=== PATIENT | female | born 2000 | race Caucasian/White ===

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

== ENCOUNTER 2022-02-01 15:48 | Emergency (ER) | payer OTHER, BC ==
[~2022-02-01] VITALS: Ht 172.7 cm; Wt 102.8 kg
[~2022-02-01 15:48] MED LIST changes: +ALBU2.5V10 INH; -ALBU83IN INH
[2022-02-01 16:54] LABS: BASO # 0.1 10^3/uL (0.0-0.2); BASO % 0.6 % (0.0-1.0); EOS # 0.3 10^3/uL (0.0-0.5); EOS % 3.2 % (0.0-3.0); HEMOGLOBIN 14.3 g/dl (12.0-15.5); LYMPH # 3.3 10^3/uL (1.5-5.0); LYMPH % 31.1 % (24.0-44.0); MEAN CORPUSCULAR HEMOGLOBIN 28.8 pg (27.0-33.0); MEAN CORPUSCULAR VOLUME 84.5 fl (80.0-96.0); MONO # 0.3 10^3/uL (0.0-0.8); MONO % 2.6 % (2.0-8.0); NEUTROPHILS # 6.5 10^3/uL (1.5-8.5); NEUTROPHILS % 62.2 % (36.0-66.0); PLATELET COUNT, AUTOMATED 270 10^3/uL (150-450); RED BLOOD COUNT 4.97 10^6/uL (4.00-5.40); WHITE BLOOD COUNT 10.5 10^3/uL (4.0-10.0)
[2022-02-01] MEDS ORDERED: NS 1,000 ML IV ONE (17:15)
[2022-02-01] MEDS ORDERED: KETOROLAC 30 MG/ML 1ML VIAL IV ONE (17:15)
[2022-02-01 17:33] LABS: ALBUMIN 3.7 GM/DL (3.2-5.2); ALT/SGPT 83 U/L (12-78); BILIRUBIN,DIRECT 0.3 MG/DL (0.0-0.2); BILIRUBIN,TOTAL 0.5 MG/DL (0.2-1.0); BLOOD UREA NITROGEN 9 MG/DL (7-18); CALCIUM LEVEL 9.4 MG/DL (8.5-10.1); CARBON DIOXIDE LEVEL 25 MEQ/L (21-32); CHLORIDE LEVEL 104 MEQ/L (98-107); CREATININE FOR GFR 0.74 MG/DL (0.55-1.30); GLUCOSE, FASTING 196 MG/DL (70-100); LIPASE 90 U/L (73-393); POTASSIUM SERUM 3.9 MEQ/L (3.5-5.1); SODIUM LEVEL 136 MEQ/L (136-145); TOTAL PROTEIN 7.8 GM/DL (6.4-8.2)
[2022-02-01 17:44] LABS: HCG, SERUM QUALITATIVE NEGATIVE (NEGATIVE)
[2022-02-01] MEDS ORDERED: ISOVUE-370 76% 100ML VIAL As Ordered ONE (17:50)
[2022-02-01 19:45] LABS: HEMOGLOBIN A1c 6.8 %
[2022-02-01 22:03] VITALS: BP 127/60
== END 2022-02-01 22:06 | disposition home or self-care (01) ==
LOC: M ED 15:48
DX: E11.65 Type 2 diabetes mellitus with hyperglycemia (principal); R94.5 Abnormal results of liver function studies; K76.0 Fatty (change of) liver, not elsewhere classified; F17.200 Nicotine dependence, unspecified, uncomplicated; J45.909 Unspecified asthma, uncomplicated; Z88.1 Allergy status to other antibiotic agents; Z88.8 Allergy status to other drugs, medicaments and biological substances
CPT/HCPCS: 74177; 80048; 80076; 81000; 81015; 83036; 83690; 84703; 85025; 96361; 96374; 99284; J1885; Q9967

== ENCOUNTER → 2022-09-24 | Outpatient (CLI) | payer OTHER | LOC: M WUC 14:14 | PROVIDERS: ATTEND Nurse Practitioner Family | DX: M54.50 Low back pain, unspecified (principal) ==

== ENCOUNTER → 2023-06-24 | Outpatient (REF) | payer OTHER, SELFPAY ==
[~2023-06-24] MED LIST changes: +CYCL-707
[2023-06-24 18:16] LABS: CREATININE, URINE 254.9 MG/DL; MAU/CREAT RATIO 17.6 MCG/MG (0.0-30.0)
[2023-06-24 18:55] LABS: BASO % 0.6 % (0.0-1.0); EOS # 0.3 10^3/uL (0.0-0.5); EOS % 3.8 % (0.0-3.0); HEMOGLOBIN 14.4 g/dl (12.0-15.5); LYMPH # 2.4 10^3/uL (1.5-5.0); LYMPH % 34.2 % (24.0-44.0); MEAN CORPUSCULAR HEMOGLOBIN 29.1 pg (27.0-33.0); MEAN CORPUSCULAR HGB CONC 34.3 g/dl (32.0-36.5); MEAN CORPUSCULAR VOLUME 84.8 fl (80.0-96.0); MONO # 0.2 10^3/uL (0.0-0.8); MONO % 3.2 % (2.0-8.0); NEUTROPHILS % 57.9 % (36.0-66.0); PLATELET COUNT, AUTOMATED 254 10^3/uL (150-450); RED BLOOD COUNT 4.95 10^6/uL (4.00-5.40); WHITE BLOOD COUNT 6.9 10^3/uL (4.0-10.0)
[2023-06-24 19:28] LABS: HEMOGLOBIN A1c 7.6 % (4.0-6.0)
[2023-06-24 19:31] LABS: BLOOD UREA NITROGEN 11 MG/DL (9-23); CALCIUM LEVEL 8.4 MG/DL (8.5-10.1); CARBON DIOXIDE LEVEL 24 MMOL/L (20-31); CHLORIDE LEVEL 106 MMOL/L (98-107); CHOLESTEROL LEVEL 164 MG/DL (<200); CHOLESTEROL RISK RATIO 5.85 (<5); CREATININE FOR GFR 0.55 MG/DL (0.55-1.30); GLOMERULAR FILTRATION RATE > 60.0 (>60); GLUCOSE, FASTING 171 MG/DL (60-100); LDL CHOLESTEROL 77.4 MG/DL (<100); POTASSIUM SERUM 4.3 MMOL/L (3.5-5.1); SODIUM LEVEL 136 MMOL/L (136-145); TRIGLYCERIDES LEVEL 293 MG/DL (<150)
[2023-06-24 19:35] LABS: THYROID STIMULATING HORMONE 2.189 uIU/ML (0.55-4.78)
== END ==
LOC: M LAB REF 16:46
PROVIDERS: ATTEND Nurse Practitioner Family
DX: R03.0 Elevated blood-pressure reading, without diagnosis of hypertension (principal); M54.50 Low back pain, unspecified; Z68.33 Body mass index [BMI] 33.0-33.9, adult

== ENCOUNTER 2023-07-03 10:02 | Emergency (ER) | payer OTHER, SELFPAY ==
[~2023-07-03] VITALS: Ht 172.7 cm; Wt 102.7 kg
[~2023-07-03 10:02] MED LIST changes: -CYCL-707
[2023-07-03 10:03] VITALS: BP 200/111; TEMP 98; O2SAT 97
[2023-07-03] MEDS ORDERED: CYCL-707 (10:09)
== END 2023-07-03 12:37 | disposition left against medical advice (07) ==
LOC: M ED 10:02
DX: Z53.21 Procedure and treatment not carried out due to patient leaving prior to being seen by health care provider (principal)

== ENCOUNTER → 2023-10-15 | Outpatient (REF) | payer SELFPAY, OTHER, BC ==
[~2023-10-15] MED LIST changes: +CYCL-707
[2023-10-15 13:14] LABS: CREATININE, URINE 130.6 MG/DL; MAU/CREAT RATIO 9.9 MCG/MG (0.0-30.0)
[2023-10-15 13:56] LABS: BASO % 0.3 % (0.0-1.0); EOS # 0.2 10^3/uL (0.0-0.5); EOS % 3.3 % (0.0-3.0); HEMATOCRIT 39.4 % (36.0-47.0); HEMOGLOBIN 13.2 g/dl (12.0-15.5); LYMPH # 2.5 10^3/uL (1.5-5.0); MEAN CORPUSCULAR HGB CONC 33.5 g/dl (32.0-36.5); MEAN CORPUSCULAR VOLUME 86.6 fl (80.0-96.0); MONO # 0.4 10^3/uL (0.0-0.8); MONO % 4.7 % (2.0-8.0); NEUTROPHILS # 4.2 10^3/uL (1.5-8.5); NEUTROPHILS % 57.4 % (36.0-66.0); PLATELET COUNT, AUTOMATED 241 10^3/uL (150-450); RED BLOOD COUNT 4.55 10^6/uL (4.00-5.40); WHITE BLOOD COUNT 7.4 10^3/uL (4.0-10.0)
[2023-10-15 13:58] LABS: CHOLESTEROL LEVEL 180 MG/DL (<200); CHOLESTEROL RISK RATIO 6.94 (<5); HDL CHOLESTEROL 25.9 MG/DL (>40); NON-HDL-C 154.1 MG/DL; TRIGLYCERIDES LEVEL 427 MG/DL (<150)
== END ==
LOC: M LAB REF 12:04
PROVIDERS: ATTEND Nurse Practitioner Family
DX: R03.0 Elevated blood-pressure reading, without diagnosis of hypertension (principal); M54.50 Low back pain, unspecified; Z68.33 Body mass index [BMI] 33.0-33.9, adult; E66.3 Overweight

== ENCOUNTER → 2024-01-28 | Outpatient (REF) | payer SELFPAY, OTHER, BC ==
[2024-01-28 19:10] LABS: ALBUMIN 3.9 G/DL (3.2-5.2); ALKALINE PHOSPHATASE 67 U/L (46-116); ALT/SGPT 90 U/L (7.0-40); AST/SGOT 52 U/L (<34); BILIRUBIN,DIRECT 0.2 MG/DL (<0.4); BILIRUBIN,TOTAL 0.6 MG/DL (0.3-1.2); BLOOD UREA NITROGEN 14 MG/DL (9-23); CALCIUM LEVEL 9.9 MG/DL (8.5-10.1); CARBON DIOXIDE LEVEL 25 MMOL/L (20-31); CHLORIDE LEVEL 106 MMOL/L (98-107); CREATININE FOR GFR 0.54 MG/DL (0.55-1.30); GLOMERULAR FILTRATION RATE > 60.0 (>60); GLUCOSE, FASTING 129 MG/DL (60-100); POTASSIUM SERUM 4.7 MMOL/L (3.5-5.1); SODIUM LEVEL 136 MMOL/L (136-145); TOTAL PROTEIN 8.1 G/DL (5.7-8.2)
[2024-01-28 19:24] LABS: HEMOGLOBIN A1c 5.9 % (4.0-6.0)
== END ==
LOC: M LAB REF 18:04
PROVIDERS: ATTEND Nurse Practitioner Family
DX: E11.8 Type 2 diabetes mellitus with unspecified complications (principal); E78.1 Pure hyperglyceridemia

== ENCOUNTER → 2024-07-17 | Outpatient (REF) | payer SELFPAY, OTHER, BC ==
[2024-07-17 18:32] LABS: HEMOGLOBIN A1c 5.7 % (4.0-6.0)
[2024-07-17 18:52] LABS: ALBUMIN 3.6 G/DL (3.2-5.2); ALKALINE PHOSPHATASE 64 U/L (35-104); ALT/SGPT 52 U/L (7.0-40); AST/SGOT 34 U/L (<34); BILIRUBIN,DIRECT 0.2 MG/DL (<0.4); BILIRUBIN,TOTAL 0.5 MG/DL (0.3-1.2); BLOOD UREA NITROGEN 11 MG/DL (9-23); CALCIUM LEVEL 9.3 MG/DL (8.5-10.1); CARBON DIOXIDE LEVEL 26 MMOL/L (20-31); CHLORIDE LEVEL 105 MMOL/L (98-107); CHOLESTEROL LEVEL 164 MG/DL (<200); CHOLESTEROL RISK RATIO 5.46 (<5); CREATININE FOR GFR 0.62 MG/DL (0.55-1.30); GLOMERULAR FILTRATION RATE > 60.0 (>60); GLUCOSE, FASTING 101 MG/DL (60-100); LDL CHOLESTEROL 82.6 MG/DL (<100); POTASSIUM SERUM 4.9 MMOL/L (3.5-5.1); SODIUM LEVEL 139 MMOL/L (136-145); TOTAL PROTEIN 7.7 G/DL (5.7-8.2); TRIGLYCERIDES LEVEL 257 MG/DL (<150)
== END ==
LOC: M LAB REF 17:28
PROVIDERS: ATTEND Nurse Practitioner Family
DX: E11.8 Type 2 diabetes mellitus with unspecified complications (principal); E78.1 Pure hyperglyceridemia

== ENCOUNTER → 2025-01-26 | Outpatient (REF) | payer BC, OTHER, SELFPAY ==
[~2025-01-26] MED LIST changes: -IBUP-1022 PO; +IBUP600T42 PO
[2025-01-26 16:07] LABS: CALCIUM LEVEL 8.9 MG/DL (8.5-10.1); CARBON DIOXIDE LEVEL 22 MMOL/L (20-31); CHLORIDE LEVEL 105 MMOL/L (98-107); CHOLESTEROL LEVEL 187 MG/DL (<200); CHOLESTEROL RISK RATIO 5.37 (<5); CREATININE FOR GFR 0.61 MG/DL (0.55-1.30); GLOMERULAR FILTRATION RATE > 90.0 (>60); LDL CHOLESTEROL 97.0 MG/DL (<100); NON-HDL-C 152.2 MG/DL; POTASSIUM SERUM 4.6 MMOL/L (3.5-5.1); SODIUM LEVEL 139 MMOL/L (136-145); TRIGLYCERIDES LEVEL 276 MG/DL (<150)
[2025-01-26 16:13] LABS: ESTIMATED AVERAGE GLUCOSE 120.0 MG/DL (60-110)
== END ==
LOC: M LAB REF 14:50
PROVIDERS: ATTEND Nurse Practitioner Family
DX: E11.8 Type 2 diabetes mellitus with unspecified complications (principal); I10 Essential (primary) hypertension; E78.1 Pure hyperglyceridemia